=== PATIENT | male | born 1945 | race Caucasian/White ===

== ENCOUNTER → 2020-09-13 | Outpatient (RCR) | payer MEDICARE | LOC: PT 08-21 15:37 | PROVIDERS: ATTEND Physical Medicine & Rehabilitation | DX: I73.9 Peripheral vascular disease, unspecified (principal); M54.42 Lumbago with sciatica, left side; M54.41 Lumbago with sciatica, right side; G89.29 Other chronic pain ==

== ENCOUNTER 2020-09-27 10:00 | Outpatient (RCR) | payer MEDICARE | END 2020-10-14 | LOC: PT 10:00 | PROVIDERS: ATTEND Physical Medicine & Rehabilitation ==

== ENCOUNTER 2021-05-18 22:51 | Emergency (ER) | payer MEDICARE ==
[~2021-05-18] VITALS: Ht 188 cm; Wt 87.1 kg
[2021-05-18] MEDS ORDERED: PIPERACILLIN/TAZOBACTAM 4.5 GM in SODIUM CHLORIDE 0.9% 100 ML IV STA (23:30)
[2021-05-18] MEDS ORDERED: SODIUM CHLORIDE 0.9% 1000ML 1,000 ML IV STA (23:59)
[2021-05-19] MEDS ORDERED: DIGOXIN INJ 0.25 MG/ML 2 ML AMP IV STA (00:11)
[2021-05-19] MEDS ORDERED: SODIUM CHLORIDE 0.9% 1000ML 1,000 ML IV STA ×2 (00:16→02:18)
[2021-05-19 00:24] LABS: EOSINOPHILS % 0.2 % (0.0-6.0); HEMATOCRIT 32.7 % (38.2-49.6); HEMOGLOBIN 10.6 g/dL (14.0-18.0); LYMPHOCYTES # (AUTO) 0.5 (1.0-3.2); LYMPHOCYTES % 12.3 % (18.0-39.1); MEAN CORPUSCULAR HEMOGLOBIN 30.5 pg (28-32); MEAN CORPUSCULAR HGB CONC 32.4 g/dL (31-35); MONOCYTES # (AUTO) 0.3 (0.2-0.8); MONOCYTES % 7.2 % (4.4-11.3); NEUTROPHILS # (AUTO) 3.2 (2.1-6.9); NEUTROPHILS % 76.2 % (38.7-80.0); PLATELET COUNT 180 x10e3/uL (140-360); RED BLOOD COUNT 3.48 x10e6/uL (4.3-5.7); RED CELL DISTRIBUTION WIDTH 14.1 % (11.7-14.4)
[2021-05-19] MEDS ORDERED: AMIODARONE HCL 150MG 100 ML IV STA (00:26)
[2021-05-19] MEDS ORDERED: AMIODARONE HCL 360MG 200 ML IV SCH ×2 (00:30→06:00)
[2021-05-19] MEDS ORDERED: AMIODARONE 900MG 500 ML IV SCH (00:30)
[2021-05-19 00:39] LABS: CREATININE, SERUM 4.21 mg/dL (0.72-1.25)
[2021-05-19] MEDS ORDERED: ADENOSINE 6 MG/2 ML VIAL IV STA (00:39)
[2021-05-19 00:40] LABS: ALBUMIN 2.2 g/dL (3.5-5.0); ALBUMIN/GLOBULIN RATIO 0.5 (0.8-2.0); CALCIUM 10.1 mg/dL (8.4-10.2)
[2021-05-19] MEDS ORDERED: PIPERACILLIN/TAZO 4.5 GM 100 ML IV ONE (01:03)
[2021-05-19] MEDS ORDERED: DILTIAZEM HCL 5 MG/ML 5 ML VIAL IV STA (01:38)
[2021-05-19] MEDS ORDERED: DILTIAZEM HCL VIAL 5 ML ONE (01:53)
[2021-05-19] MEDS ORDERED: ACETAMINOPHEN 325 MG TAB PO ONE (02:00)
[2021-05-19] MEDS ORDERED: ACETAMINOPHEN 325 MG TAB ONE (02:06)
== END 2021-05-19 04:35 | disposition other institution (70) ==
LOC: ER 22:55
DX: A41.9 Sepsis, unspecified organism (principal); J18.9 Pneumonia, unspecified organism; R50.9 Fever, unspecified; I48.20 Chronic atrial fibrillation, unspecified; Z20.822 Contact with and (suspected) exposure to COVID-19; Z85.118 Personal history of other malignant neoplasm of bronchus and lung
CPT/HCPCS: 36415; 71045; 80053; 83605; 83880; 85025; 87040; 93005; 99284; J1160; J2543 ×2; J7030; J7050; U0002